=== PATIENT | female | born 1995 | race Asian ===

== ENCOUNTER 2018-07-15 01:29 | Emergency (ER) | payer OTHER ==
[~2018-07-15] VITALS: Ht 157.5 cm; Wt 55.3 kg
[2018-07-15 01:31] VITALS: BP 118/83
--- NOTE | 2018-07-15 02:18 | NUR ---
PT. REPORTS LEFT ANKLE PAIN AFTER STEPPING WRONG ON FOOT DURING VOLLEYBALL AT 1900 YESTERDAY. PER TRIAGE NOTE
== END 2018-07-15 03:01 | disposition home or self-care (01) ==
LOC: ED 02:55
DX: S93.412A Sprain of calcaneofibular ligament of left ankle, initial encounter (principal); W21.06XA Struck by volleyball, initial encounter; Y93.68 Activity, volleyball (beach) (court); Y92.328 Other athletic field as the place of occurrence of the external cause; Y99.8 Other external cause status
CPT/HCPCS: 99283